=== PATIENT | female | born 1970 | race American Indian/Alaskan Native ===

== ENCOUNTER 2021-10-13 08:53 | Outpatient (AMBR) | payer OTHER, SELFPAY ==
--- NOTE | 2021-10-07 14:09 | PT.OIERPT ---
PT OP Initial Eval Patient Information Visit Reasons: left hip pain Medical Diagnosis: M25.552 Treatment Dx #1: back and L hip pain Start of Care: 10/07/21 Date of Onset: 3 months ago Initial Assessment Subjective Pt is 51 yr old female who reports onset of L lateral hip pain x3 months insidious onset. Pt reports increased pain with prolonged sitting and standing after sitting, walking. She works at a desk job as accounting support specialist and standing up and walking around relieves the pain. PMH: DM, HTN, high cholesterol Pt goal: to get rid of the pain. Objective Trunk ArOM: B SB 50% of normal with pain L>R Extension: 10% with pain around L4-5, L5-S1 centrally Flexion: 10 from floor with LBP B rotation: 60% R SLR ROM: 45 deg. L SLR: 50 deg with posterior knee neural tension LE strength: B hamstrings: 4-/5 Quads 4-/5 Hip abd/add 4-/5 TTP: moderate paraspinals L4-5 and PSIS on L Neuro: L SLR: positive Assessment Pt presents with trunk extension sensitivity and overlying myofascial pain and TTP around L4-5 and L SI jt. Pt has lumbar extensor atrophy and pain with prolonged sitting. Pt has poor/fair pelvic kinematics and difficulty finding neutral spine. These findings are consistent with lower lumbar disc irritation/dysfunction. Pt requires skilled therapy in order to decrease pain and improve standing tolerance and has fair rehab potential. Short Term and Cv/Cvn Cv Tsc System Operator Goals 1. Ind with HEP 2. Improved standing tolerance to 30 minutes with <=4/10 LBP 3. Pt will improve ambulatory distance to 2 [address] 4. Pt will squat x15 with lumbar lordosis and no increase in LBP Treatment Plan 1. Manual therapy 2. Therex 3. Modalities as indicated, moist heat, ice, estim, mechanical traction Frequency and Duration 2x a week for 6 weeks Certification Dates: 10/07/21 to 72739 Office Procedures PT Treatments PT Date of Service: 10/07/21 OP PT Eval Mod Complex 30 minutes: Yes
--- NOTE | 2021-10-09 13:43 | PT.ODAYNRPT ---
PT Outpatient Daily Note Date of Service: 10/09/21 OP Daily Note Visit Reasons: left hip pain Outpatient Physical Therapy Treatment Date: 10/09/21 Subjective: Same as time of eval Objective: SEe F/S for therex MT: STM L2-5 and PSIS on L and L lateral thigh with [place] x10' Assessment: Min TTP with MT today and increased pressure in L/S with prone on elbows. She ambulates with antalgia and short step length. Plan: Continue per POC Length of Time (minutes) of Treatment: 30 Minutes Office Procedures PT Treatments PT Date of Service: 10/07/21 OP PT Eval Mod Complex 30 minutes: Yes PT Treatments PT Date of Service: 10/09/21 Therapeutic Exercise 15 minutes: Yes Manual Public Utilities Sales Representative 15 minutes: Yes
--- NOTE | 2021-10-13 11:24 | PT.ODAYNRPT ---
PT Outpatient Daily Note Date of Service: 10/13/2020 OP Daily Note Visit Reasons: left hip pain Outpatient Physical Therapy Treatment Date: 10/13/21 Subjective: pt started with PT but PT had to go home so she finished treatment with CYBER DEFENSE INCIDENT RESPONDER. Objective: see flow sheet. Assessment: pt on hotpack for her ther ex in supine. she was not able to hold the stretch with her LLE although she attempted but could not keep position. pt completed the stretch on her RLE fine. noted she had muscle tension on the R side of her back during STM. she was able to tolerate the STM with slight pressure. Plan: continue POC per PT. Length of Time (minutes) of Treatment: 30 Minutes Office Procedures PT Treatments PT Date of Service: 10/13/21 Therapeutic Exercise 30 minutes: Yes PT Treatments PT Date of Service: 10/07/21 OP PT Eval Mod Complex 30 minutes: Yes PT Treatments PT Date of Service: 10/09/21 Therapeutic Exercise 15 minutes: Yes Manual Abrading Machine Tender 15 minutes: Yes
--- NOTE | 2021-10-30 09:43 | PT.ODS1RPT ---
PT OP Progress/Discharge Note Date of Service: 10/30/21 Progress Note/DC Note Progress Note/Discharge Note: DC Note Patient Information Visit Reasons: left hip pain Service Continue Service or Discharge: Discharge Discharge Date: 10/30/21 Status Assessment: Pt attended the initial evaluation and 2 Rx visits and then wanted to self D/C and didn't give reason. She was seen on last visit by FORMING DEPARTMENT SUPERVISOR and wasn't reassessed by PT. Plan: Self-D/C Office Procedures PT Treatments PT Date of Service: 10/13/21 Therapeutic Exercise 30 minutes: Yes PT Treatments PT Date of Service: 10/07/21 OP PT Eval Mod Complex 30 minutes: Yes PT Treatments PT Date of Service: 10/09/21 Therapeutic Exercise 15 minutes: Yes Manual Underground Mine Machinery Mechanic 15 minutes: Yes
== END 2021-10-27 23:59 | disposition home or self-care (01) ==
PROVIDERS: PCP Physician Assistant; Referring Provider Physician Assistant; Visit Provider Internal Medicine Rheumatology
DX: M25.552 Pain in left hip (principal); M54.50 Low back pain, unspecified; E11.9 Type 2 diabetes mellitus without complications; I10 Essential (primary) hypertension
CPT/HCPCS: 97110; 97140; 97162

== ENCOUNTER → 2024-12-05 | Outpatient (CLI) | payer OTHER, SELFPAY ==
--- NOTE | 2024-12-05 10:00 | XR_ITS ---
Examination: Transvaginal ultrasound of the pelvis, complete Technique: Transvaginal sonographic images pelvis performed using sepulveda scale imaging Exam date and time: December 05, 2024 1013 hrs. Indications: Right lower abdominal pelvic pain beginning 3 months ago. Findings: Absent uterus Right ovary obscured by bowel gas Left ovary 3.0 cm arterial flow 16mm follicular cyst Impression: Limited study Absent uterus
--- NOTE | 2024-12-05 10:30 | XR_ITS ---
Examination: Screening digital mammography, bilateral Computer aided detection 3-D breast Tomosynthesis, bilateral Date and time of exam: 12/05/2024, 10:26 AM Comparisons: October 2023 Indications: Screening Technique: Nonmagnified MLO, CC views of the breasts to been obtained, reconstructed from 3-D Tomosynthesis images. R2 computer aided detection program utilized for evaluation of suspicious masses and/or abnormal calcifications. 3-D Tomosynthesis images obtained. Technologist: Findings: There are scattered areas of fibroglandular density. No evidence of abnormal masses or suspicious calcifications. Impression: BI-RADS category 1: Negative findings (within normal) Recommend 1 year follow-up mammogram
== END | disposition home or self-care (01) ==
LOC: CDIM 09:53
PROVIDERS: PCP Physician Assistant; Referring Provider Physician Assistant; Visit Provider Physician Assistant
DX: Z12.31 Encounter for screening mammogram for malignant neoplasm of breast (principal); R92.313 Mammographic fatty tissue density, bilateral breasts; Z90.710 Acquired absence of both cervix and uterus
CPT/HCPCS: 76830; 77063; 77067

== ENCOUNTER → 2025-03-01 | Outpatient (CLI) | payer OTHER, SELFPAY ==
--- NOTE | 2025-03-01 08:00 | XR_ITS ---
Examination: CT abdomen and pelvis without contrast. Coronal 3-D reconstructions. Sagittal 2-D reconstructions. Date and time of exam:March 01, 2025 0800 hours INDICATIONS: Onset pelvic and perineal pain right lower abdominal pain beginning one year ago CTDI: vol (mGy): 11.1 DLP: (mGycm): 584 Technique: Axial images of the abdomen have been obtained, 3 mm slice thickness Intravenous contrast material has not been administered. Low dose protocols were performed. One or more of the following dose reduction techniques were used; automated exposure control, adjustment of the mA and/or KV according to patient size, use of iterative reconstruction technique. Findings: Small liver calcification Absent gallbladder Spleen not enlarged No pancreatic or adrenal mass 1 mm lower pole left renal calculus, no hydronephrosis or ureteral calculi Aorta normal size Normal appendix No bowel obstruction 12 mm left pelvic cyst Urinary bladder intact IMPRESSION: 1 mm nonobstructing left renal calculus
== END | disposition home or self-care (01) ==
LOC: CCTX 07:46
PROVIDERS: Referring Provider Physician Assistant; Visit Provider Physician Assistant
DX: N20.0 Calculus of kidney (principal)
CPT/HCPCS: 74176